=== PATIENT | male | born 1960 | race Two or more races ===

== ENCOUNTER 2016-05-18 09:11 | Day surgery (SDC) | payer OTHER ==
[~2016-05-18] VITALS: Ht 180.3 cm; Wt 83.0 kg
[2016-05-18 10:36] VITALS: Ht 180.3 cm; Wt 83.0 kg
[2016-05-18] MEDS ORDERED: NO HOME MEDS (10:41)
[2016-05-18 10:54] VITALS: BP 139/73; PULSE 62; RESP 17
[2016-05-18] MEDS ORDERED: FENTAnyl 50 MCG/ML VIAL ONE (11:57)
[2016-05-18] MEDS ORDERED: MIDAZOLAM 1 MG/ML 2 ML INJ ONE ×2 (11:57)
--- NOTE | 2016-05-18 12:04 | GILP ---
DATE OF PROCEDURE: NAME OF PROCEDURE: Colonoscopy. SURGEON: Chanelle Franklin MD PREOPERATIVE DIAGNOSIS: Screening colonoscopy. POSTOPERATIVE DIAGNOSES 1. Colonoscopy all the way to the cecum. 2. Internal hemorrhoids. 3. No colon neoplasm was identified. INDICATION FOR THE PROCEDURE: Mr. Fabian Zimmerman is a 56-year-old male patient who was scheduled for screening colonoscopy. The procedure and possible complications are well explained to the patient, he understood and consen lane to the procedure. DESCRIPTION OF PROCEDURE: Under the influence of fentanyl and Versed, the colonoscope was carefully introduced in the rectum and under direct vision, it was advanced all the way to the cecum. FINDINGS: The patient had internal hemorrhoids. No colon neoplasm was identified. He tolerated the procedure very well and there was no complication from the procedure. At the end o f the procedure, he was awake with stable vital signs and he was discharged home to the care of his family. IMPRESSION: 1. Colonoscopy all the way to the cecum. 2. Internal hemorrhoids. 3. No colon neoplasm was identified. PLAN: Next screening colonoscopy in 10 years. Dictated By: CHANELLE MCGRATH/DIONY Conf#: [id number] DID#: [id number]
[2016-05-18 12:17] VITALS: BP 141/69; PULSE 60; RESP 15
--- NOTE | 2016-05-18 22:08 | CONS ---
DATE OF ADMISSION: 05/18/2016 DATE OF CONSULTATION: TYPE OF CONSULTATION: Preoperative gastroenterology I thank you very much for this kind referral. HISTORY OF PRESENT ILLNESS: Mr. Fabian Zimmerman is a 56-year-old male patient who has been referr ed to me for further evaluation of change in the bowel habit associated with rectal bleeding. There is no past history of colon neoplasm. The patient needs screening colonoscopy. His appetite has b een good and he is not losing any weight. He does not have any upper abdominal pain, nausea or vomi ting. There is no history of peptic ulcer disease. He is not taking any nonsteroidal anti-inflamma tory agents. He is status post cholecystectomy. He does not have any fever, chills or jaundice. T here is no history of liver disease. He is not a hypertensive or diabetic. He does not have any he art disease or lung problems. There is no history of kidney disease. SOCIAL HISTORY: He is a nonsmoker. He does not abuse alcohol. FAMILY HISTORY: Particular for a history of colon cancer in his father. ALLERGIES: THERE IS NO HISTORY OF SIGNIFICANT DRUG ALLERGY. MEDICATIONS: None. PHYSICAL EXAMINATION: GENERAL: He is 5 feet 11 inches tall and he weighs 180 pounds. HEART: Examination of the heart reveals normal first and second heart sounds. LUNGS: Clear. ABDOMEN: Soft without any distention. Liver and spleen are not palpable. There are no masses. Th ere is no focal tenderness. Normal bowel sounds are heard. CENTRAL NERVOUS SYSTEM: Does not reveal any focal neurological deficit. IMPRESSION: 1. Change in the bowel habit. 2. History of rectal bleeding. 3. The patient needs screening colonoscopy. 4. The patient's father had colon cancer. 5. Status post cholecystectomy. PLAN: Screening colonoscopy. The procedure and possible complications are well explained to the patient. He understands and cons ents to the procedure. I thank you once again. With warmest personal regards, Dictated By: GEMMA MCGRATH/DIONY Conf#: [id number] DID#: [id number] CC: GEMMA HERNANDEZ MD;*EndCC*
== END 2016-05-18 13:54 | disposition home or self-care (01) ==
LOC: GIL 09:11
PROVIDERS: ATTEND Internal Medicine Gastroenterology
DX: Z12.11 Encounter for screening for malignant neoplasm of colon (principal); K64.8 Other hemorrhoids; Z90.49 Acquired absence of other specified parts of digestive tract; Z80.0 Family history of malignant neoplasm of digestive organs
CPT/HCPCS: 45378; J2250; J3010